=== PATIENT | male | born 1940 | race Caucasian/White ===

== ENCOUNTER 2023-01-08 13:36 | Emergency (ER) | payer OTHER ==
[~2023-01-08] VITALS: Ht 188 cm; Wt 95.3 kg
[2023-01-08] MEDS ORDERED: ACETAMINOPHEN 500 MG TABLET PO ONE (15:00)
[2023-01-08] MEDS ORDERED: PREDNISONE 20 MG TABLET PO ONE (15:00)
[2023-01-08] MEDS ORDERED: ACET-66 PO (15:01)
[2023-01-08] MEDS ORDERED: PRED20TA3 PO (15:01)
[2023-01-08 15:34] VITALS: BP 146/69
== END 2023-01-08 15:40 | disposition home or self-care (01) ==
LOC: EDH 13:36
DX: M54.41 Lumbago with sciatica, right side (principal); E11.9 Type 2 diabetes mellitus without complications; E78.00 Pure hypercholesterolemia, unspecified; I25.2 Old myocardial infarction; I10 Essential (primary) hypertension; Z88.0 Allergy status to penicillin; Z95.1 Presence of aortocoronary bypass graft; Z79.899 Other long term (current) drug therapy

== ENCOUNTER → 2023-02-07 | Outpatient (CLI) | payer MEDICARE ==
[~2023-02-07] MED LIST: ACET-66 PO; PRED20TA3 PO
[2023-02-07 12:30] LABS: CREATININE 0.8 mg/dL (0.5-1.5); POTASSIUM 4.5 mmol/L (3.5-5.1)
== END | disposition home or self-care (01) ==
LOC: LAB 09:32
PROVIDERS: ATTEND Internal Medicine Cardiovascular Disease
DX: I50.22 Chronic systolic (congestive) heart failure (principal)
CPT/HCPCS: 36415; 80048; 83880

== ENCOUNTER → 2023-02-07 | Outpatient (CLI) | payer MEDICARE, OTHER | END | disposition home or self-care (01) | LOC: RAH 10:39 | PROVIDERS: ATTEND Internal Medicine Cardiovascular Disease | DX: I50.22 Chronic systolic (congestive) heart failure (principal) | CPT/HCPCS: 71046 ==

== ENCOUNTER 2023-12-10 10:34 | Emergency (ER) | payer MEDICARE, OTHER ==
[~2023-12-10] VITALS: Ht 188 cm; Wt 90.7 kg
[2023-12-10] MEDS: HYDROCODONE/ACETAMINOPHEN 5/325 MG TAB PO ONE (13:17)
[2023-12-10] MEDS: ONDANSETRON 4MG TABLET PO ONE (13:18)
[2023-12-10 15:02] VITALS: BP 138/62; PULSE 64; RESP 18; O2SAT 98
== END 2023-12-10 15:07 | disposition home or self-care (01) ==
LOC: EDH 10:34
DX: M48.061 Spinal stenosis, lumbar region without neurogenic claudication (principal); M51.17 Intervertebral disc disorders with radiculopathy, lumbosacral region; M51.36 Other intervertebral disc degeneration, lumbar region; I10 Essential (primary) hypertension; E11.9 Type 2 diabetes mellitus without complications; E78.00 Pure hypercholesterolemia, unspecified; Z79.899 Other long term (current) drug therapy; Z98.890 Other specified postprocedural states; Z88.0 Allergy status to penicillin
CPT/HCPCS: 99284; 72131; Q0162

== ENCOUNTER 2024-11-10 06:57 | Day surgery (SDC) | payer OTHER ==
[2024-11-06 09:11] LABS: BASOPHILS # (AUTO) 0.03 K/uL (0.00-0.20); BASOPHILS % (AUTO) 0.6 % (0.0-5.0); EOSINOPHILS # (AUTO) 0.16 K/uL (0.00-0.70); EOSINOPHILS % (AUTO) 3.1 % (0.0-8.0); HEMATOCRIT 39.9 % (42-54); IMMATURE GRANULOCYTE ABSOLUTE 0.02 K/uL (0-1); LYMPHOCYTES # (AUTO) 1.5 K/uL (1.0-4.8); LYMPHOCYTES % (AUTO) 28.6 % (21.0-51.0); MEAN CORPUSCULAR HEMOGLOBIN 31.4 pg (27.0-33.0); MEAN CORPUSCULAR HGB CONC 31.8 g/dL (32.0-36.0); MEAN CORPUSCULAR VOLUME 98.8 fL (79-99); MONOCYTES # (AUTO) 0.5 K/uL (0.1-1.0); NEUTROPHILS % (AUTO) 58.3 % (40.0-77.0); PLATELET COUNT (AUTO) 163 K/uL (130-400); RED BLOOD CELL COUNT(AUTO) 4.04 MIL/uL (4.50-6.20); RED CELL DISTRIBUTION WIDTH 13.9 % (11.0-15.5); WHITE BLOOD COUNT (AUTO) 5.1 K/uL (4.8-10.8)
[2024-11-06 09:16] VITALS: BP 162/79; PULSE 60; RESP 15; TEMP 98.2
[2024-11-06 09:21] LABS: CREATININE 0.7 mg/dL (0.5-1.3); POTASSIUM 4.5 mmol/L (3.5-5.1)
[2024-11-06 09:24] LABS: INR 1.09 (0.85-1.15); PROTHROMBIN TIME 12.1 SEC (9.6-11.6)
[2024-11-06 09:26] LABS: PARTIAL THROMBOPLASTIN TIME 31.5 SEC (26.3-35.5)
[~2024-11-10] VITALS: Ht 188 cm; Wt 94.2 kg
[2024-11-10] VITALS (17 sets, daily range): BP systolic 130–169; BP diastolic 56–84; PULSE 55–68; RESP 14–18; TEMP 97–97.8
[2024-11-10] MEDS: CLINDAMYCIN IVPB 900MG/50ML 50 ML IV ONE (06:44)
[2024-11-10] MEDS: 0.9%NACL 1000ML 1,000 ML IV ONE (06:44)
[~2024-11-10 06:57] MED LIST changes: +0.9%NACL 1000ML 1,000 ML IV SCH; +ALBU18HF7 IH; +AMIO200T68 PO; +APIX5TAB PO; +ATOR40TA69 PO; +CARB15DR OU; +CARV6.25 PO; +CEPH500T PO; +EMPA25TA PO; +FERR-72 PO; +FEXO-263 PO; +FOLI1 PO; +LACT1CAP70 PO; +MAGN500C4 PO; +METF-444 PO; +PANT40TA54 PO; -PRED20TA3 PO; +SACU1TAB PO; +SENN8.6T90 PO; +SPIR25TA6 PO; +TAMS-1 PO; +VIT1CAPS47 PO; +VITAMIN B12 PO
[2024-11-10] MEDS ORDERED: SUCCINYLCHOLINE CHLORIDE 20 MG/ML 10 ML VIAL ONE (07:28)
[2024-11-10] MEDS ORDERED: GLYCOPYRROLATE 0.2 MG/ML 5 ML VIAL ONE (07:28)
[2024-11-10] MEDS ORDERED: ondanSETRON 4MG INJ ONE (07:28)
[2024-11-10] MEDS ORDERED: NEOSTIGMINE METHYLSULFATE 1MG/ML IV ONE (07:28)
[2024-11-10] MEDS ORDERED: rocuRONium bROMide 10MG/1ML 5ML VL ONE (07:28)
[2024-11-10] MEDS ORDERED: LIDOCAINE PF 100MG/5ML (2%) SYRINGE 5ML ONE (07:28)
[2024-11-10] MEDS ORDERED: dexaMETHasone SOD PHOSPHATE 10MG/ML 1ML VIAL ONE (07:28)
[2024-11-10] MEDS ORDERED: proPOFol 10 MG/ML 20ML VIAL IV ONE (07:28)
[2024-11-10] MEDS ORDERED: FENTanyl CITRate PF 50 MCG/1 ML 2ML VIAL ONE ×2 (07:29→08:08)
[2024-11-10] MEDS ORDERED: MIDAZOLAM HCL 1 MG/ML 2ML VIAL ONE (07:29)
[2024-11-10] MEDS ORDERED: ROPivacaine 0.5% 5MG/ML 30ML ONE (07:32)
[2024-11-10] MEDS ORDERED: ketaMINE 50MG/ML SYRINGE 50 MG/ML DISP.SYRIN ONE (07:34)
[2024-11-10] MEDS ORDERED: BUPIvacaine/PF 0.25% 30ML VIAL IJ ONE (07:39)
[2024-11-10] MEDS: ALBUMIN (HUMAN) 5% 250 ML IV ONE (08:06)
[2024-11-10] MEDS ORDERED: SUGAMMADEX SODIUM 200 MG/2 ML VIAL IV ONE (08:36)
[2024-11-10] MEDS ORDERED: FAMOTIDINE 20MG VIAL IV ONE (08:36)
[2024-11-10] MEDS: acetaMINOPHEN 100 ML ONE (09:37)
--- NOTE | 2024-11-10 11:01 | NUR ---
Full and complete discharge instructions given to Patient and Family both verbally and in writing. Explained Surgical procedure precautions and follow up. Bulky surgical dressing clean, dry and intact. Voided in bathroom x 1. All questions answered. PIV removed with catheter tip intact. Home with Family W/C to POV.
--- NOTE | 2024-11-10 12:33 | OP ---
Operative Note: DATE OF PROCEDURE: 11/10/24 SURGEON: ROB DRIVER MD HVAC INSTALLATION TECHNICIAN: [] ANESTHESIA: [] General ANESTHESIOLOGIST/INFORMATION TECHNOLOGY ADMINISTRATOR: [] PREOPERATIVE DIAGNOSIS: [] Large left inguinal scrotal hernia POSTOPERATIVE DIAGNOSIS: [] The same SYNOPSIS: [] PROCEDURE: [] Open left inguinal hernia repair with mesh ESTIMATED BLOOD LOSS: [] INDICATIONS: [] DESCRIPTION OF PROCEDURE: [] With the patient prepped and draped in general anesthesia I did a left groin incision. Using cautery dissection and blunt dissection I was able to expose the external oblique aponeurosis. This was opened and using blunt dissection I was able to get around the spermatic cord and contents. Patient has an extremely large inguinal scrotal hernia. After several attempts I was able to bring the hernia with the sac and including the testicle to the area of the wound. I then the spermatic cord important structures from the large sac. The sac was opened and I was able to find a sliding hernia with the colon attached to the wall. I had to separate the attachments of the sigmoid from the sac and with a very difficult maneuvers I was able to push back the whole colon into the abdomen. Of note is was at the colon has significant number of large diverticula. After this was done I close the sac and transected. At all points I was able to preserve the important structures of the cord. After this was done and I placed a keyhole mesh medium size and anchored to the inguinal ligament with a 2-0 Prolene into the conjoint tendon with a 2-0 Prolene. I then created a new internal ring with the mesh. After this was done and adequate hemostasis I closed the external oblique aponeurosis with a 3-0 Vicryl. Subcutaneous tissues were placed in the skin was closed with 4-0 Monocryl and Steri-Strips. Patient received an abdominal tap block by anesthesia ROB DRIVER MD Nov 10, 2024 12:33
== END 2024-11-10 11:06 | disposition home or self-care (01) ==
LOC: DAH 06:57
PROVIDERS: ATTEND Surgery
DX: K40.90 Unilateral inguinal hernia, without obstruction or gangrene, not specified as recurrent (principal); I25.10 Atherosclerotic heart disease of native coronary artery without angina pectoris; I48.91 Unspecified atrial fibrillation; K21.9 Gastro-esophageal reflux disease without esophagitis; I10 Essential (primary) hypertension; E66.9 Obesity, unspecified; Z68.27 Body mass index [BMI] 27.0-27.9, adult; Z79.899 Other long term (current) drug therapy; Z79.84 Long term (current) use of oral hypoglycemic drugs; Z79.82 Long term (current) use of aspirin; Z98.890 Other specified postprocedural states; Z95.1 Presence of aortocoronary bypass graft; Z86.2 Personal history of diseases of the blood and blood-forming organs and certain disorders involving the immune mechanism
CPT/HCPCS: 80048; 85025; 85610; 85730; 36415; 64486; 49525; 82948 ×2; 88304; A4223 ×2; A4600; A6260; A4663; J7030 ×2; P9045; J3490 ×5; J3010 ×2; J1100; J0330; J0665; J2003; J2250; J2704; J2405; J2710; J2795; C1781; A4215; A4222; A4221; A4216; A4450

== ENCOUNTER → 2024-12-29 | Outpatient (CLI) | payer OTHER ==
[~2024-12-29] MED LIST changes: -0.9%NACL 1000ML 1,000 ML IV SCH; -TAMS-1 PO; +TAMS-55 PO
--- NOTE | 2024-12-29 13:54 | HMCIMG ---
Exam Type: US SOFT TISSUE GROIN Clinical Information: LT GROIN Comparison: None Findings and impression: Seroma or old hematoma left groin region at the site of clinical concern, 6.1 x 5.3 cm, extending to the upper scrotum.
--- NOTE | 2024-12-29 13:55 | HMCIMG ---
Testicular ultrasound with color-flow Doppler Clinical Information: Comparison: Findings: The testes are of normal size and echogenicity. There is a complex collection left scrotal region and left groin, 7 x 7.4 cm, consistent with a seroma or old hematoma. Vascular flow is preserved to both testes- there is no evidence of torsion. There is no evidence of inflammation. No fluid collections are seen. Specifically, there is no hydrocele. The epididymis is unremarkable bilaterally. There is no evidence of varicoceles. Scrotal wall is normal in thickness bilaterally. Impression: Normal testes. Left groin seroma or old hematoma.
== END | disposition home or self-care (01) ==
LOC: RAH 12:32
PROVIDERS: ATTEND Surgery
DX: N50.812 Left testicular pain (principal)
CPT/HCPCS: 76870; 76882